=== PATIENT | female | born 1970 | race African-American/Black ===

== ENCOUNTER → 2023-09-10 19:21 | Outpatient (REF) | payer OTHER, SELFPAY | LOC: WDC 19:21 | PROVIDERS: ATTENDING PHYSICIAN Obstetrics & Gynecology; FAMILY PHYSICIAN Nurse Practitioner Adult Health | DX: Z12.31 Encounter for screening mammogram for malignant neoplasm of breast (principal) | CPT/HCPCS: 77063; 77067 ==

== ENCOUNTER → 2023-09-12 08:24 | Outpatient (REF) | payer OTHER, SELFPAY | LOC: HWRAD 08:24 | PROVIDERS: ATTENDING PHYSICIAN Internal Medicine; FAMILY PHYSICIAN Nurse Practitioner Adult Health | DX: R10.84 Generalized abdominal pain (principal); D25.9 Leiomyoma of uterus, unspecified | CPT/HCPCS: 76700; 76830; 76856 ==

== ENCOUNTER 2023-11-02 19:34 | Emergency (ER) | payer OTHER, SELFPAY ==
[2023-11-02 19:36] VITALS: BP 159/119
[2023-11-02 20:09] LABS: % Basophils 0.7 % (0-2); % Eosinophils 4.2 % (0-6); % Immature Granulocytes 0.3 % (0-0.5); % Lymphocytes 55.6 % (20.5-51.1); % Neutrophils 32.2 % (42.2-75.2); Absolute Basophils 0.1 10^3/uL (0-0.2); Absolute Eosinophils 0.3 10^3/uL (0-0.7); Absolute Lymphocytes 3.7 10^3/uL (1.2-3.4); Absolute Monocytes 0.5 10^3/uL (0.1-0.6); Absolute Neutrophils 2.1 10^3/uL (1.4-6.5); Hematocrit 36.8 % (37.0-47.0); Hemoglobin 12.8 g/dL (12.0-16.0); Mean Corp Hgb Conc. 34.8 g/dL (33.0-37.0); Mean Corpuscular Volume 89.1 fL (81.0-99.0); Mean Platelet Volume 9.5 fL (7.4-10.4); Nucleated Red Blood Cells % 0 %; Platelet Count 246 10^3/uL (130-400); Red Blood Cell Count 4.13 10^6/uL (4.20-5.40); Red Cell Dist. Width 11.9 % (11.5-14.5); White Blood Cell Count 6.7 10^3/uL (4.8-10.8)
[2023-11-02 20:10] VITALS: BMI 26.4
--- NOTE | 2023-11-02 20:15 | ED.GENMED ---
History of Present Illness
<Maco John MD - Last Filed: 11/02/23 22:49>
General
Chief Complaint: Abdominal Symptoms
Source: patient
Exam Limitations: none
Time Seen by Provider: 11/02/23 20:01
Nursing documentation reviewed up to this point in time: agreed with
Travel History
Have you had any contact with someone who has COVID-19?: No
Do you have any symptoms of coronavirus? Fever > 100 degrees, chills, cough, shortness of breath, sore throat, loss of taste or smell, muscle aches, or headache?: No
History of Present Illness
History of Present Illness:
52-year-old female with a past medical history of asthma, GERD who presents to the emergency room for evaluation of abdominal pain. Patient reports that she has been doing intermittent fasting recently and she fasts from 7 PM to 10 AM. Yesterday
morning she says that she broke her fast in the mid morning and shortly thereafter developed some chest pressure that she describes as feeling similar to prior episodes of indigestion. She says that typically she resolves this by drinking warm
beverages and occasionally taking a PPI; yesterday she drank a warm beverage and the feeling passed after a short period of time. She says that she did not have much of an appetite the rest of the day and so she did not eat for the rest of the day
yesterday. This morning she says that she once again tried eating and again got this feeling that she describes as indigestion in the center of her chest. She says that once again she drank warm beverages this time she says she did take some
omeprazole prior to eating and eventually the feeling once again passed. She felt well enough to go to the gym and worked out for about 2 hours. When she came home she says that she ate a stuffed green pepper and shortly thereafter she developed
very intense pain in the right upper quadrant and that pain has been consistent since onset. She describes a pressure sensation right upper quadrant that does not radiate. Associated with nausea but no vomiting. She has had some loose stools
recently. No blood in her stools. She denies any fever. She has been dealing with some nasal congestion/sinus infection recently. She denies any other complaints. She has been seen by GI in the past Dr. Wall. No prior history of abdominal
surgeries. Review of medical record shows that she did have an ultrasound in September which showed no gallstones.
Past History
<Maco John MD - Last Filed: 11/02/23 22:49>
Past History
ED Past Medical History: Other (Gastritis); Negative HTN, NIDDM or Seizures
ED Past Surgical History: Gynecological ()
Social History
Tobacco: Non-smoker
Alcohol: None
Drug: None
Personal:
Living: with family
Employment: Employed (Accounting)
Family History
Family History: Other (Noncontributory)
Review of Systems
<Maco John MD - Last Filed: 11/02/23 22:49>
Review of Systems
All Other Systems: ROS reviewed and negative except as documented in HPI and ROS
Constitutional: Denies fever or chills
EENT: Reports other (Nasal congestion); Denies sore throat or runny nose
Respiratory: Denies cough or trouble breathing
Cardiac: Reports chest pain; Denies palpitations
ABD/GI: Reports abdominal pain, nausea and diarrhea; Denies vomiting, constipated or bloody stools
: Denies flank pain
Musculoskeletal: Denies neck pain or back pain
Neurological: Denies headache, weakness or numbness
Phy Exam
<Maco John MD - Last Filed: 11/02/23 22:49>
Physical Exam
Physical Exam:
General: Awake, alert, appears mildly uncomfortable
Head: Normocephalic, atraumatic
Eyes: Conjunctiva normal, sclera anicteric
Throat: Airway intact, handling secretions
Neck: Trachea midline, supple without meningismus
Lungs: Clear to auscultation bilaterally, no wheezing, rales, rhonchi
Heart: Regular rate and rhythm, no murmurs, gallops, or rubs
Abd: Soft, non distended, tender to palpation right upper quadrant with no palpable masses
Neuro: No gross deficits
Skin: no rash
Extremities: No edema in extremities, warm and well-perfused
Scores
<Maco John MD - Last Filed: 11/02/23 22:49>
Heart Failure Risk
Heart Failure Risk Score: Not Applicable
Heart Score for Chest Pain Patients
STEMI patient?: Not applicable
Withdrawal Assessment of Alcohol
Withdrawal Assessment Completed?: Not applicable
Course
<Maco John MD - Last Filed: 11/02/23 22:49>
Orders/Labs/Results
Orders:
Orders
11/02/23 19:40
ECG [Electrocardiogram (*1)] Urgent
Reason for Study: Chest Pain
EKG- Treatment ONCE
11/02/23 20:03
CMP [Comprehensive Metabolic Panel] Urgent
Complete Blood Count/With Diff Urgent
Lipase Urgent
Comment: ADD ON
11/02/23 20:14
Ketorolac [Toradol] 15 mg IV NOW STA
US Abdomen Complete/Upper Urgent
Comment:
Reason For Exam: RUQ pain
11/02/23 20:15
Troponin I Urgent
11/02/23 20:16
Add On- LAB Urgent
Tests Added?: lipase
11/02/23 20:18
STOOL [C difficile Antigen & Toxins] Urgent
JADA Source: Feces/Stool
Specimen Description:
Stool Culture Urgent
JADA Source: Feces/Stool
Specimen Description:
11/02/23 20:27
Iohexol [Omnipaque] See Protocol PO NOW STA
11/02/23 20:35
Urinalysis Reflex To Culture Urgent
Date Specimen was Collected: 11/02/23
Time Specimen was Collected: 20:16
11/02/23 21:33
D-Dimer Urgent
11/02/23 22:24
CT Abd/pelvis W Iv Cont Urgent
Comment:
Reason For Exam: right sided abdominal pain
Abnormal Lab Results
11/02/23
20:03
RBC 4.13 L 10^6/uL
(4.20-5.40)
Hct 36.8 L %
(37.0-47.0)
Absolute Lymphs (auto) 3.7 H 10^3/uL
(1.2-3.4)
Neutrophils % 32.2 L %
(42.2-75.2)
Lymphocytes % 55.6 H %
(20.5-51.1)
11/02/23 20:03
11/02/23 20:03
Vital Signs
Initial and Last Documented VS:
Initial Vital Signs
Temp Pulse Resp BP Pulse Ox
98.3 F 96 20 159/119 99
11/02/23 19:36 11/02/23 19:36 11/02/23 19:36 11/02/23 19:36 11/02/23 19:36
Last Documented Vital Signs
Temp Pulse Resp BP Pulse Ox
98.3 F 96 20 159/119 99
11/02/23 19:36 11/02/23 19:36 11/02/23 19:36 11/02/23 19:36 11/02/23 19:36
Baljitlt;Mina Covington, DO - Last Filed: 11/02/23 23:55>
Orders/Labs/Results
Orders:
Orders
11/02/23 19:40
ECG [Electrocardiogram (*1)] Urgent
Reason for Study: Chest Pain
EKG- Treatment ONCE
11/02/23 20:03
CMP [Comprehensive Metabolic Panel] Urgent
Complete Blood Count/With Diff Urgent
Lipase Urgent
Comment: ADD ON
11/02/23 20:14
Ketorolac [Toradol] 15 mg IV NOW STA
US Abdomen Complete/Upper Urgent
Comment:
Reason For Exam: RUQ pain
11/02/23 20:15
Troponin I Urgent
11/02/23 20:16
Add On- LAB Urgent
Tests Added?: lipase
11/02/23 20:18
STOOL [C difficile Antigen & Toxins] Urgent
JADA Source: Feces/Stool
Specimen Description:
Stool Culture Urgent
JADA Source: Feces/Stool
Specimen Description:
11/02/23 20:27
Iohexol [Omnipaque] See Protocol PO NOW STA
11/02/23 20:35
Urinalysis Reflex To Culture Urgent
Date Specimen was Collected: 11/02/23
Time Specimen was Collected: 20:16
11/02/23 21:33
D-Dimer Urgent
11/02/23 22:24
CT Abd/pelvis W Iv Cont Urgent
Comment:
Reason For Exam: right sided abdominal pain
Abnormal Lab Results
11/02/23
20:03
RBC 4.13 L 10^6/uL
(4.20-5.40)
Hct 36.8 L %
(37.0-47.0)
Absolute Lymphs (auto) 3.7 H 10^3/uL
(1.2-3.4)
Neutrophils % 32.2 L %
(42.2-75.2)
Lymphocytes % 55.6 H %
(20.5-51.1)
11/02/23 20:03
11/02/23 20:03
Vital Signs
Initial and Last Documented VS:
Initial Vital Signs
Temp Pulse Resp BP Pulse Ox
98.3 F 96 20 159/119 99
11/02/23 19:36 11/02/23 19:36 11/02/23 19:36 11/02/23 19:36 11/02/23 19:36
Last Documented Vital Signs
Temp Pulse Resp BP Pulse Ox
98.3 F 96 20 159/119 99
11/02/23 19:36 11/02/23 19:36 11/02/23 19:36 11/02/23 19:36 11/02/23 19:36
<Maco John MD - Last Filed: 11/02/23 22:49>
MDM/Problems Addressed
Differential Diagnosis Includes:
Gastritis/GERD, cholecystitis, cholelithiasis, choledocholithiasis, enteritis, nephrolithiasis, pyelonephritis, much less likely appendicitis
MDM/Problems Addressed:
52-year-old female presents for evaluation of abdominal pain�she had some vague chest discomfort after eating twice over the past 24 hours and then this evening started with consistent right upper quadrant pain after eating. She is hypertensive but
has otherwise normal vitals. Physical exam as above. Plan to place an IV check labs including CBC and a CMP, lipase. Will check an EKG and a troponin in abundance of caution given the chest pain but lower suspicion for cardiac etiology for her
symptoms. Will check D-dimer although low suspicion for PE as well. Will check urinalysis. Will start with a right upper quadrant ultrasound to evaluate for cholelithiasis/cholecystitis. Will treat patient's pain, monitor closely, reassess after
the above.
Initial labs reviewed: CBC unremarkable, CMP shows no clinically significant abnormalities�LFTs notably normal. Lipase normal. Troponin undetectable. Dimer negative. Urinalysis shows no signs of infection. Awaiting results of ultrasound.
Ultrasound no signs of acute cholecystitis or cholelithiasis. LFTs and lipase normal. Will send for CT of the abdomen pelvis. Fortunately on clinical reassessment patient says her pain is resolved. If CT negative will likely plan for discharge
and treat for GERD/gastritis.
Acute Exacerbation and/or Progression of Chronic Illness:
Acutely hypertensive likely related to pain�we will treat pain but no indication for emergent antihypertensive treatment at present
Acute Exacerbation and/or Progression of Chronic Illness: HTN
<Maco John MD - Last Filed: 11/02/23 22:49>
*Radiology
Radiology exam reviewed: radiology read reviewed
*Pulse Oximetry
Patient hypoxic: no
*EKG
Interpreted by ED Provider?: Yes
Heart Rate: 79
Rate: normal
Rhythm: sinus
Dumas: normal axis
Interval: normal interval
QRS Pattern: normal QRS
Ischemia: no ischemia
*Critical Care Note
Total Time (30-74mins, 75-104mins- exclusive of procedures): Not Applicable
Data Reviewed
Review of Other/Old Records Reveals: Labs, Records and Radiology Studies
Source: patient and family
<Mina Covington DO - Last Filed: 11/02/23 23:55>
Update Note
Update Note:
Care of patient was transitioned pending CT. CT shows evidence of gastritis. On my evaluation, she is well-appearing nontoxic and feels comfortable going home. Will start Pepcid
ED Attending Note
<Maco John MD - Last Filed: 11/02/23 22:49>
-
Portions of this chart may have been created with voice recognition software.� Occasional wrong word or��sound alike� substitutions may have occurred due to the inherent limitations of voice recognition software.
Discharge Plan
Departure
Patient Disposition: Home (Routine Discharge)
Date of Disposition: 11/02/23
Time of Disposition: 23:52
Patient with high blood pressure during this ER visit?: Yes
Discharge Problem:
Gastritis
Instructions: Gastritis ED, BLOOD PRESSURE
Prescriptions:
New
famotidine [Pepcid] 40 mg tablet
40 mg PO DAILY Qty: 30 0RF
ondansetron 4 mg Tablet,Disintegrating
4 mg PO BIDPRN PRN (Reason: nausea/vomiting) Qty: 10 0RF
No Action
omeprazole 40 mg Capsule,Delayed Release(Dr/Ec)
40 mg PO PRN PRN (Reason: indigestion)
Referrals:
UNKNOWN - PT NOT,INTERVIEWE [Unknown Provider] -
Activity Restrictions/Additional Instructions:
Please return for any worsening symptoms.
You may return at any time if you have further concerns.
Please follow up with your doctor at the first available appointment, preferably this week.
Thank you for choosing [facility].
Interventions
Interventions:
*Risk Screen - Suicide Last Done: 11/02/23 19:36
*General Assessment Last Done: 11/02/23 19:36
*Neglect/Abuse Screening Last Done: 11/02/23 20:10
ED- Fall Risk Assessment Last Done: 11/02/23 20:10
*ED COVID-19 Vaccine History Last Done: 11/02/23 20:10
HO-Ltkcpk-Dfyanzpgqj Assessment Last Done: 11/02/23 20:10
[2023-11-02] MEDS: TORADOL 15 MG IV (20:17)
[2023-11-02 20:23] LABS: ALT (SGPT) 33 U/L (0-35); AST (SGOT) 36 U/L (14-36); Albumin 4.4 g/dl (3.5-5.0); Alkaline Phosphatase 89 U/L (38-126); Blood Urea Nitrogen 12 mg/dl (7-17); Calcium 9.8 mg/dl (8.4-10.2); Carbon Dioxide 23 mmol/L (22-30); Chloride 102 mmol/L (98-107); Estimated Creatinine Clearance 76 ml/min; Glucose 89 mg/dl (70-99); Potassium 3.7 mmol/L (3.5-5.1); Sodium 136 mmol/L (135-145); Total Bilirubin 0.8 mg/dl (0.2-1.3); Total Protein 7.7 g/dl (6.3-8.2); eGFR > 60.00
[2023-11-02] MEDS: OMNIPAQUE 50 ML PO (20:32)
[2023-11-02 20:41] LABS: Lipase 141 U/L (23-300)
[2023-11-02 20:43] LABS: Troponin I < 0.012 ng/ml
[2023-11-02 20:51] LABS: Urine Albumin Negative (Neg - Trace); Urine Bilirubin Negative (Negative); Urine Character Clear (Clear); Urine Color Yellow; Urine Glucose Negative (Negative); Urine Ketone Negative (Negative); Urine Leukocyte Negative (Negative); Urine Nitrite Negative (Negative); Urine Occult Blood Negative (Negative); Urine Specific Gravity 1.005 (<1.030); Urine Urobilinogen Negative (Neg - 1+)
[2023-11-02 22:04] LABS: D-Dimer < 0.27 ug/mlFEU (0.00-0.50)
[2023-11-03 00:07] VITALS: BP 158/79
== END 2023-11-03 00:18 | disposition home or self-care (01) ==
LOC: EMR 19:34
PROVIDERS: EMERGENCY PHYSICIAN Emergency Medicine; FAMILY PHYSICIAN Nurse Practitioner Adult Health
DX: K29.70 Gastritis, unspecified, without bleeding (principal); K21.9 Gastro-esophageal reflux disease without esophagitis; J45.909 Unspecified asthma, uncomplicated; Z87.19 Personal history of other diseases of the digestive system
CPT/HCPCS: 99284; 96374; 74177; 76700; 80053; 81003; 83690; 84484; 85025; 85379; 93005; Q9967

== ENCOUNTER 2023-12-18 09:04 | Emergency (ER) | payer OTHER, SELFPAY ==
[2023-12-18 09:06] VITALS: BP 160/95
--- NOTE | 2023-12-18 09:51 | ED.GENMED ---
History of Present Illness
General
Chief Complaint: Bowel Problem
Source: patient
Exam Limitations: none
Time Seen by Provider: 12/18/23 09:22
Travel History
Have you had any contact with someone who has COVID-19?: No
Do you have any symptoms of coronavirus? Fever > 100 degrees, chills, cough, shortness of breath, sore throat, loss of taste or smell, muscle aches, or headache?: No
History of Present Illness
History of Present Illness:
53 year old female presents with rectal pain and constipation. She has not had a bowel movement in several days. She was here a month ago for abdominal pain found to have gastritis and duodenitis. She is due to see GI in March. She tried an
enema at home today without any relief. She is nauseous but no vomiting. No fevers. She notes diffuse lower abdominal pain. No other complaints at this time
Past History
Past History
ED Past Medical History: Other (Gastritis); Negative HTN, NIDDM or Seizures
ED Past Surgical History: Gynecological ()
Social History
Tobacco: Non-smoker
Alcohol: None
Drug: None
Personal:
Living: with family
Employment: Employed (Accounting)
Family History
Family History: Other (Noncontributory)
Phy Exam
Physical Exam
Physical Exam:
General: Well-appearing female no acute respiratory
HEENT: Normocephalic atraumatic
Abdomen: Soft tender to the lower abdomen. No guarding or rebound normal bowel sounds
Rectal exam: This was performed female procurement agent in the room. There is no stool in the rectal vault. There is no hemorrhoids. Patient was tender to digital exam
Extremities: No cyanosis
Course
Orders/Labs/Results
Orders:
Orders
12/18/23 09:50
CR Abdomen - 2 Views Urgent
Comment:
Reason For Exam: constipation
12/18/23 10:28
Enema- Treatment ONCE
Type: Milk of Molasses
12/18/23 11:28
0.9% Sodium Chloride 1000 ml [Nss] 1,000 ml IV BOLUS
Iohexol [Omnipaque] See Protocol PO NOW STA
Ondansetron Injectable [Zofran] 4 mg IV NOW STA
12/18/23 11:29
CT Abd/pel W Iv And Oral Contr Urgent
Comment:
Reason For Exam: lower abdominal pain
12/18/23 11:37
Ketorolac [Toradol] 15 mg .ROUTE .STK-MED ONE
12/18/23 11:38
Ketorolac [Toradol] 15 mg IV NOW STA
12/18/23 11:39
Complete Blood Count/With Diff Urgent
Comprehensive Metabolic Panel Urgent
Lipase Urgent
12/18/23 15:12
Magnesium Citrate [Citroma] 300 ml PO ONCE ONE
Abnormal Lab Results
12/18/23
11:39
Abs Immat Gran (auto) 0.1 H 10^3/uL
(0-0.05)
Absolute Neuts (auto) 8.0 H 10^3/uL
(1.4-6.5)
Neutrophils % 77.0 H %
(42.2-75.2)
Lymphocytes % 16.8 L %
(20.5-51.1)
12/18/23 11:39
12/18/23 11:39
Vital Signs
Initial and Last Documented VS:
Initial Vital Signs
Temp Pulse Resp BP Pulse Ox
98.1 F 90 18 160/95 100
12/18/23 09:06 12/18/23 09:06 12/18/23 09:06 12/18/23 09:06 12/18/23 09:06
Last Documented Vital Signs
Temp Pulse Resp BP Pulse Ox
98.8 F 84 18 133/84 98
12/18/23 14:35 12/18/23 14:35 12/18/23 14:35 12/18/23 14:35 12/18/23 14:35
MDM/Problems Addressed
Differential Diagnosis Includes:
Lower abdominal pain with constipation. Question possible constipation versus obstruction versus proctitis.
Reviewed prior imaging studies which demonstrated CT scan that was performed last month with oral and IV contrast which showed duodenitis and gastritis. Patient has an appointment with GI in March however symptoms are worsening.
Will order plain x-ray acute attempted to quantify stool load or signs of obstruction given recent CT scan.
*Critical Care Note
Total Time (30-74mins, 75-104mins- exclusive of procedures): Not Applicable
Update Note
Update Note:
Plain films of abdomen do demonstrate significant mount of stool. Attempted milk of molasses enema. Patient held enema for several minutes however there was no bowel movement and pain is increasing. At this point we will start IV check labs
including lipase. CT of abdomen with oral and IV contrast ordered. Fluids and Zofran ordered and Toradol as well
Patient reexamined. Appears more comfortable. CT shows a large amount of stool in the colon without obstruction or acute process otherwise. Patient had a little bit of relief with enema. Will discharge home with magnesium citrate and
instructions to use MiraLAX as well
ED Attending Note
-
Portions of this chart may have been created with voice recognition software.� Occasional wrong word or��sound alike� substitutions may have occurred due to the inherent limitations of voice recognition software.
Discharge Plan
Departure
Patient Disposition: Home (Routine Discharge)
Date of Disposition: 12/18/23
Time of Disposition: 15:13
Patient with high blood pressure during this ER visit?: No
Discharge Problem:
Constipation
Instructions: Constipation, Adult (DC)
Prescriptions:
No Action
omeprazole 40 mg Capsule,Delayed Release(Dr/Ec)
40 mg PO PRN PRN (Reason: indigestion)
famotidine [Pepcid] 40 mg tablet
40 mg PO DAILY Qty: 30 0RF
ondansetron 4 mg Tablet,Disintegrating
4 mg PO BIDPRN PRN (Reason: nausea/vomiting) Qty: 10 0RF
Referrals:
Maribel Maguire, [Active] -
Arturo Medina CRNP [Family Provider] -
Activity Restrictions/Additional Instructions:
Use magnesium citrate as directed. Continue with MiraLAX after. Return if worse otherwise follow-up with GI
Interventions
Interventions:
*Risk Screen - Suicide Last Done: 12/18/23 09:06
*General Assessment Last Done: 12/18/23 12:05
*Neglect/Abuse Screening Last Done: 12/18/23 09:06
ED- Fall Risk Assessment Last Done: 12/18/23 12:05
*ED COVID-19 Vaccine History Last Done: 12/18/23 09:06
NK-Brziew-Goxygrjnok Assessment Last Done: 12/18/23 11:20
Discharge Date and Time
Print Language: ESTONIAN
[2023-12-18 11:35] VITALS: BMI 19.1
[2023-12-18] MEDS: NSS 1000 IV (11:40)
[2023-12-18] MEDS: ZOFRAN 4 MG IV (11:40)
[2023-12-18] MEDS: TORADOL 15 MG IV (11:40)
[2023-12-18] MEDS: OMNIPAQUE 50 ML PO (11:40)
[2023-12-18 12:01] LABS: % Basophils 0.4 % (0-2); % Eosinophils 0.4 % (0-6); % Immature Granulocytes 0.5 % (0-0.5); % Lymphocytes 16.8 % (20.5-51.1); % Monocytes 4.9 % (1.7-9.3); Absolute Immature Granulocytes 0.1 10^3/uL (0-0.05); Absolute Lymphocytes 1.7 10^3/uL (1.2-3.4); Absolute Monocytes 0.5 10^3/uL (0.1-0.6); Hematocrit 37.6 % (37.0-47.0); Hemoglobin 13.2 g/dL (12.0-16.0); Mean Corp Hgb Conc. 35.1 g/dL (33.0-37.0); Mean Corpuscular Volume 88.3 fL (81.0-99.0); Mean Platelet Volume 9.5 fL (7.4-10.4); Nucleated Red Blood Cells % 0 %; Platelet Count 283 10^3/uL (130-400); Red Blood Cell Count 4.26 10^6/uL (4.20-5.40); Red Cell Dist. Width 12.2 % (11.5-14.5); White Blood Cell Count 10.4 10^3/uL (4.8-10.8)
[2023-12-18 12:03] LABS: ALT (SGPT) 28 U/L (0-35); AST (SGOT) 31 U/L (14-36); Albumin 4.6 g/dl (3.5-5.0); Alkaline Phosphatase 108 U/L (38-126); Blood Urea Nitrogen 10 mg/dl (7-17); Calcium 9.7 mg/dl (8.4-10.2); Carbon Dioxide 24 mmol/L (22-30); Chloride 104 mmol/L (98-107); Estimated Creatinine Clearance 69 ml/min; Glucose 98 mg/dl (70-99); Lipase 92 U/L (23-300); Potassium 3.5 mmol/L (3.5-5.1); Sodium 137 mmol/L (135-145); Total Bilirubin 1.1 mg/dl (0.2-1.3); eGFR > 60.00
[2023-12-18 14:35] VITALS: BP 133/84
[2023-12-18] MEDS: CITROMA 300 ML PO (15:20)
== END 2023-12-18 15:45 | disposition home or self-care (01) ==
LOC: EMR 09:04
PROVIDERS: Physician Assistant; EMERGENCY PHYSICIAN Emergency Medicine; FAMILY PHYSICIAN Registered Nurse
DX: K59.00 Constipation, unspecified (principal)
CPT/HCPCS: 99285; 96374; 96375; 96361; 74019; 74177; 80053; 83690; 85025; Q9967

== ENCOUNTER 2024-01-19 12:37 | Emergency (ER) | payer OTHER, SELFPAY ==
[2024-01-19 12:44] VITALS: BP 135/87
[2024-01-19 13:13] LABS: % Basophils 1.9 % (0-2); % Eosinophils 11.1 % (0-6); % Immature Granulocytes 0.2 % (0-0.5); % Lymphocytes 38.5 % (20.5-51.1); % Monocytes 8.8 % (1.7-9.3); % Neutrophils 39.5 % (42.2-75.2); Absolute Basophils 0.1 10^3/uL (0-0.2); Absolute Eosinophils 0.5 10^3/uL (0-0.7); Absolute Lymphocytes 1.8 10^3/uL (1.2-3.4); Absolute Monocytes 0.4 10^3/uL (0.1-0.6); Absolute Neutrophils 1.9 10^3/uL (1.4-6.5); Hematocrit 39.1 % (37.0-47.0); Hemoglobin 13.3 g/dL (12.0-16.0); Mean Corpuscular Hgb 30.6 pg (27.0-31.0); Mean Corpuscular Volume 89.9 fL (81.0-99.0); Mean Platelet Volume 9.5 fL (7.4-10.4); Nucleated Red Blood Cells % 0 %; Platelet Count 214 10^3/uL (130-400); Red Blood Cell Count 4.35 10^6/uL (4.20-5.40); White Blood Cell Count 4.8 10^3/uL (4.8-10.8)
[2024-01-19 13:24] LABS: ALT (SGPT) 19 U/L (0-35); AST (SGOT) 27 U/L (14-36); Albumin 4.3 g/dl (3.5-5.0); Alkaline Phosphatase 85 U/L (38-126); Blood Urea Nitrogen 13 mg/dl (7-17); Calcium 9.6 mg/dl (8.4-10.2); Carbon Dioxide 29 mmol/L (22-30); Chloride 106 mmol/L (98-107); Glucose 78 mg/dl (70-99); Potassium 4.2 mmol/L (3.5-5.1); Sodium 140 mmol/L (135-145); Total Bilirubin 0.8 mg/dl (0.2-1.3); Total Protein 7.5 g/dl (6.3-8.2); eGFR > 60.00
[2024-01-19 13:36] LABS: Troponin I < 0.012 ng/ml
--- NOTE | 2024-01-19 14:00 | ED.GENMED ---
History of Present Illness
General
Chief Complaint: Chest Pain
Source: patient
Exam Limitations: none
Time Seen by Provider: 01/19/24 13:29
Nursing documentation reviewed up to this point in time: agreed with
Travel History
Have you had any contact with someone who has COVID-19?: No
Do you have any symptoms of coronavirus? Fever > 100 degrees, chills, cough, shortness of breath, sore throat, loss of taste or smell, muscle aches, or headache?: No
History of Present Illness
History of Present Illness:
53-year-old female prior history of asthma resolved after pregnancies, presents with wheezing burning in her chest, saw her PCP told her it was reflux started on a PPI some relief of her symptoms, though she is waking up with some wheezing,
nondrinker non-smoker no fevers no nausea or vomiting, using albuterol with not much relief
Past History
Past History
ED Past Medical History: Asthma and Other (Gastritis); Negative HTN, NIDDM or Seizures
ED Past Surgical History: Gynecological ()
Social History
Tobacco: Non-smoker
Alcohol: None
Drug: None
Personal:
Living: with family
Employment: Employed (Accounting)
Family History
Family History: Other (Noncontributory); Negative CAD
Review of Systems
Review of Systems
All Other Systems: ROS reviewed and negative except as documented in HPI and ROS
Constitutional: Denies fever or fatigue
Respiratory: Reports trouble breathing
Cardiac: Reports chest pain
ABD/GI: Reports no symptoms
: Reports no symptoms
Musculoskeletal: Reports no symptoms
Skin: Reports no symptoms
Neurological: Reports no symptoms
Endocrine: Reports no symptoms
Hematologic/Lymphatic: Reports no symptoms
Phy Exam
Physical Exam
Physical Exam:
Physical Exam
General: no apparent distress, not acutely ill
Neck: No jaundice
Heart: s1/s2 regular rate and rhythm, no murmur. equal radial pulses.
Lungs: Faint wheezing
Abdomen:
Neuro: alert and oriented. no focal neurological deficits
Skin: no rash
Psychiatric: well kept. interactive and cooperative
Extremities: no edema. no calf tenderness.
Scores
Heart Score for Chest Pain Patients
STEMI patient?: No
History: Slightly or Non-Suspicious
ECG: Normal
Age: >45 - <65 years
Risk Factors: 1 or 2 Risk Factors
Troponin: </= Normal Limit
Heart Score for Chest Pain Patients: 2
Heart Score Risk: 2.5% MACE over next 6 weeks
Course
Orders/Labs/Results
Orders:
Orders
01/19/24 12:49
Electrocardiogram (*1) Urgent
Reason for Study: Chest Pain
EKG- Treatment ONCE
01/19/24 12:58
CMP [Comprehensive Metabolic Panel] Urgent
Complete Blood Count/With Diff Urgent
Troponin I Urgent
01/19/24 13:56
Dexamethasone Sod Phosphate [Decadron] 10 mg IV NOW STA
Ipratropium/Albuterol Sulfate [Duoneb] 3 ml INH R NOW STA
01/19/24 13:57
CR Chest - 2 Views Urgent
Comment:
Reason For Exam: sob
01/19/24 15:27
D-Dimer Urgent
01/19/24 16:19
Mag Hydrox/Al Hydrox/Simeth [Maalox] 30 ml Phenobarb/Hyoscy/Atropine/Scop [] 10 ml Viscous Lidocaine 2% [Xylocaine Viscous Cup] 10 ml PO NOW
Abnormal Lab Results
01/19/24
12:58
Neutrophils % 39.5 L %
(42.2-75.2)
Eosinophils % 11.1 H %
(0-6)
01/19/24 12:58
01/19/24 12:58
Vital Signs
Initial and Last Documented VS:
Initial Vital Signs
Temp Pulse Resp BP Pulse Ox
98.2 F 86 16 135/87 100
01/19/24 12:44 01/19/24 12:44 01/19/24 12:44 01/19/24 12:44 01/19/24 12:44
Last Documented Vital Signs
Temp Pulse Resp BP Pulse Ox
98.2 F 82 18 120/87 99
01/19/24 12:44 01/19/24 16:00 01/19/24 16:00 01/19/24 16:00 01/19/24 16:00
MDM/Problems Addressed
Differential Diagnosis Includes:
URI asthmatic bronchitis reflux doubt ACS unlikely pneumothorax PE
MDM/Problems Addressed:
Wheezing dyspepsia
Chronic conditions affecting care:
Asthma
Acute Exacerbation and/or Progression of Chronic Illness:
Asthma
*Critical Care Note
Total Time (30-74mins, 75-104mins- exclusive of procedures): Not Applicable
Update Note
Update Note:
Patient well-appearing, will treat with nebs steroids will check SSA D-dimer chest x-ray
3:38 PM chest x-ray report noted D-dimer is pending
4:00 D-dimer noted
Patient updated, still some tightness in her chest near points over her sternum, states she is no longer wheezing her chest is clear will try Maalox abdominal
ED Attending Note
-
Portions of this chart may have been created with voice recognition software.� Occasional wrong word or��sound alike� substitutions may have occurred due to the inherent limitations of voice recognition software.
Discharge Plan
Departure
Patient Disposition: Home (Routine Discharge)
Date of Disposition: 01/19/24
Time of Disposition: 16:46
Patient with high blood pressure during this ER visit?: No
Condition: Good
Covid-19: Not Applicable
Discharge Problem:
Chest pain
Instructions: Acid Reflux and GERD in Adults (DC), Chest Pain PCP Follow Up
Prescriptions:
New
alum-mag hydroxide-simeth [Maalox Advanced] 200-200-20 mg/5 mL suspension
10 ml PO QID PRN (Reason: indigestion) Qty: 1500 0RF
albuterol sulfate 90 mcg/actuation HFA aerosol inhaler
2 puff inhalation Q6H PRN (Reason: shortness of breath or wheezing) Qty: 8.5 0RF
methylprednisolone [Medrol (Dima)] 4 mg tablets,dose pack
See Rx Instructions .ROUTE .COMPLEX Qty: 21 0RF
Rx Instructions:
for 6 days
No Action
omeprazole 40 mg Capsule,Delayed Release(Dr/Ec)
40 mg PO DAILY
famotidine [Pepcid] 40 mg tablet
40 mg PO DAILY Qty: 30 0RF
cyanocobalamin (vitamin B-12) 1,000 mcg Tablet
1,000 mcg PO DAILY
Theragen Tablet
1 tab PO DAILY
alum-mag hydroxide-simeth [Mylanta] 200-200-20 mg/5 mL Suspension
15 ml PO DAILYPRN PRN (Reason: gerd)
cholecalciferol (vitamin D3) [Vitamin D3] 25 mcg (1,000 unit) Tablet
25 mcg PO DAILY
biotin 5 mg Tablet
5 mg PO DAILY
magnesium glycinate 100 mg Tablet
100 mg PO HS
magnesium citrate 100 mg Capsule
100 mg PO DAILYPRN PRN (Reason: constiaption)
elderberry fruit 350 mg Capsule
350 mg PO DAILY
cetirizine [Zyrtec] 10 mg Tablet
10 mg PO DAILYPRN PRN (Reason: allergies)
Referrals:
Jamaica Jones CRNP [Family Provider] - Next open appointment
Interventions
Interventions:
*General Assessment Last Done: 01/19/24 12:44
*ED COVID-19 Vaccine History Last Done: 01/19/24 12:44
ED- Cardiac Assessment Last Done: 01/19/24 15:54
Discharge Date and Time
Print Language: MAURITIAN
[2024-01-19] MEDS: DUONEB 3 ML INH (15:24)
[2024-01-19] MEDS: DECADRON 10 MG IV (15:24)
[2024-01-19 15:34] VITALS: BP 132/83
[2024-01-19 15:53] LABS: D-Dimer < 0.27 ug/mlFEU (0.00-0.50)
[2024-01-19 16:00] VITALS: BP 120/87
[2024-01-19] MEDS: MAALOX 50 PO (16:53)
== END 2024-01-19 17:21 | disposition home or self-care (01) ==
LOC: EMR 12:37
PROVIDERS: Emergency Medicine; EMERGENCY PHYSICIAN Emergency Medicine; FAMILY PHYSICIAN Nurse Practitioner Adult Health
DX: R07.89 Other chest pain (principal); J45.909 Unspecified asthma, uncomplicated; K21.9 Gastro-esophageal reflux disease without esophagitis; Z87.19 Personal history of other diseases of the digestive system
CPT/HCPCS: 99283; 94640; 96374; 71046; 80053; 84484; 85025; 85379; 93005

== ENCOUNTER 2024-01-27 15:59 | Emergency (ER) | payer OTHER, SELFPAY ==
[2024-01-27 16:06] VITALS: BP 156/87
[2024-01-27] MEDS: MAALOX 40 PO (17:17)
--- NOTE | 2024-01-27 17:23 | ED.GENMED ---
History of Present Illness
General
Chief Complaint: Abdominal Pain
Source: patient
Exam Limitations: none
Time Seen by Provider: 01/27/24 17:04
Nursing documentation reviewed up to this point in time: agreed with
Travel History
Have you had any contact with someone who has COVID-19?: No
Do you have any symptoms of coronavirus? Fever > 100 degrees, chills, cough, shortness of breath, sore throat, loss of taste or smell, muscle aches, or headache?: No
History of Present Illness
History of Present Illness:
53-year-old female known to me from prior visit presents with burning in her chest
When I saw her few weeks ago she had negative troponins felt much better after GI cocktail she did follow-up with her PCP who told her she had yeast started on antifungal, scheduled to see GI tomorrow, states she does wheeze at times due to her
reflux, she wheezes child and teenager did not until the start of her reflux like symptoms, she also on a PPI,
Pain is nonradiating, no diaphoresis
Past History
Past History
ED Past Medical History: Asthma and Other (Gastritis); Negative HTN, NIDDM or Seizures
ED Past Surgical History: Gynecological ()
Social History
Tobacco: Non-smoker
Alcohol: None
Drug: None
Personal:
Living: with family
Employment: Employed (Accounting)
Family History
Family History: Other (Noncontributory); Negative CAD
Review of Systems
Review of Systems
All Other Systems: Not applicable
Constitutional: Denies fever or fatigue
EENT: Reports no symptoms
Respiratory: Denies trouble breathing
Cardiac: Reports chest pain
ABD/GI: Reports abdominal pain (Burning in her upper abdomen and the chest)
: Reports no symptoms
Musculoskeletal: Reports no symptoms
Skin: Reports no symptoms
Neurological: Reports no symptoms
Endocrine: Reports no symptoms
Phy Exam
Physical Exam
Physical Exam:
Physical Exam
General: no apparent distress, not acutely ill
Neck: No jaundice
Heart: s1/s2 regular rate and rhythm, no murmur. equal radial pulses.
Lungs: no acute respiratory distress. clear bilaterally
Abdomen: Soft, minimal epigastric tenderness
Neuro: alert and oriented. no focal neurological deficits
Skin: no rash
Psychiatric: well kept. interactive and cooperative
Extremities: no edema.
Scores
Heart Score for Chest Pain Patients
STEMI patient?: No
History: Slightly or Non-Suspicious
ECG: Nonspecific Repolarization
Age: >45 - <65 years
Risk Factors: No Risk Factors
Troponin: </= Normal Limit
Heart Score for Chest Pain Patients: 2
Heart Score Risk: 2.5% MACE over next 6 weeks
Course
Orders/Labs/Results
Orders:
Orders
01/27/24 16:01
ECG [Electrocardiogram (*1)] Urgent
Reason for Study: Chest Pain
EKG- Treatment ONCE
01/27/24 17:12
Mag Hydrox/Al Hydrox/Simeth [Maalox] 30 ml Phenobarb/Hyoscy/Atropine/Scop [] 10 ml Viscous Lidocaine 2% [Xylocaine Viscous Cup] 10 ml PO NOW
01/27/24 17:15
Mag Hydrox/Al Hydrox/Simeth [Maalox] 30 ml .ROUTE .STK-MED ONE
Phenobarb/Hyoscy/Atropine/Scop [] 10 ml .ROUTE .STK-MED ONE
Viscous Lidocaine 2% [Xylocaine Viscous Cup] 15 ml .ROUTE .STK-MED ONE
01/27/24 17:52
Troponin I Urgent
Vital Signs
Initial and Last Documented VS:
Initial Vital Signs
Temp Pulse Resp BP Pulse Ox
98.7 F 88 20 156/87 98
01/27/24 16:06 01/27/24 16:06 01/27/24 16:06 01/27/24 16:06 01/27/24 16:06
Last Documented Vital Signs
Temp Pulse Resp BP Pulse Ox
98.7 F 88 20 156/87 98
01/27/24 16:06 01/27/24 16:06 01/27/24 16:06 01/27/24 16:06 01/27/24 16:06
MDM/Problems Addressed
Differential Diagnosis Includes:
Gastritis, esophagitis, doubt pancreatitis no pain in the back, ACS less likely EKG noted no diaphoresis no radiation
MDM/Problems Addressed:
Chest burning
Chronic conditions affecting care:
GERD
Acute Exacerbation and/or Progression of Chronic Illness:
GERD
*Critical Care Note
Total Time (30-74mins, 75-104mins- exclusive of procedures): Not Applicable
Update Note
Update Note:
Update patient feeling better undetectable troponin
ED Attending Note
-
Portions of this chart may have been created with voice recognition software.� Occasional wrong word or��sound alike� substitutions may have occurred due to the inherent limitations of voice recognition software.
Discharge Plan
Departure
Patient Disposition: Home (Routine Discharge)
Date of Disposition: 01/27/24
Time of Disposition: 18:29
Patient with high blood pressure during this ER visit?: No
Condition: Good
Discharge Problem:
Indigestion
Instructions: Acid Reflux and GERD in Adults (DC), Gastritis (DC)
Prescriptions:
New
nuzfinllg-rwueqz-kpjpzryq-scop [] 16.2 mg-0.1037 mg/5 mL (5 mL) elixir
7.5 ml PO Q6H PRN (Reason: indigestion) Qty: 50 0RF
Rx Instructions:
Mix with 30 cc of Maalox
alum-mag hydroxide-simeth [Antacid Liquid] 200-200-20 mg/5 mL suspension
30 ml PO QID PRN (Reason: indigestion) Qty: 3000 0RF
No Action
omeprazole 40 mg Capsule,Delayed Release(Dr/Ec)
40 mg PO DAILY
famotidine [Pepcid] 40 mg tablet
40 mg PO DAILY Qty: 30 0RF
cyanocobalamin (vitamin B-12) 1,000 mcg Tablet
1,000 mcg PO DAILY
Theragen Tablet
1 tab PO DAILY
alum-mag hydroxide-simeth [Mylanta] 200-200-20 mg/5 mL Suspension
15 ml PO DAILYPRN PRN (Reason: gerd)
cholecalciferol (vitamin D3) [Vitamin D3] 25 mcg (1,000 unit) Tablet
25 mcg PO DAILY
biotin 5 mg Tablet
5 mg PO DAILY
magnesium glycinate 100 mg Tablet
100 mg PO HS
magnesium citrate 100 mg Capsule
100 mg PO DAILYPRN PRN (Reason: constiaption)
elderberry fruit 350 mg Capsule
350 mg PO DAILY
cetirizine [Zyrtec] 10 mg Tablet
10 mg PO DAILYPRN PRN (Reason: allergies)
alum-mag hydroxide-simeth [Maalox Advanced] 200-200-20 mg/5 mL suspension
10 ml PO QID PRN (Reason: indigestion) Qty: 1500 0RF
albuterol sulfate 90 mcg/actuation HFA aerosol inhaler
2 puff inhalation Q6H PRN (Reason: shortness of breath or wheezing) Qty: 8.5 0RF
methylprednisolone [Medrol (Dima)] 4 mg tablets,dose pack
See Rx Instructions .ROUTE .COMPLEX Qty: 21 0RF
Rx Instructions:
for 6 days
Referrals:
UNKNOWN - PT DOES,NOT KNOW [Family Provider] -
Interventions
Interventions:
*Risk Screen - Suicide Last Done: 01/27/24 17:08
*General Assessment Last Done: 01/27/24 17:08
*Neglect/Abuse Screening Last Done: 01/27/24 17:08
JT-Nlcfbv-Tjxqunejmn Assessment Last Done: 01/27/24 17:08
Discharge Date and Time
Print Language: JAPANESE
[2024-01-27 18:23] LABS: Troponin I < 0.012 ng/ml
== END 2024-01-27 19:03 | disposition home or self-care (01) ==
LOC: EMR 15:59
PROVIDERS: EMERGENCY PHYSICIAN Emergency Medicine
DX: K30 Functional dyspepsia (principal); K21.9 Gastro-esophageal reflux disease without esophagitis; J45.909 Unspecified asthma, uncomplicated
CPT/HCPCS: 99284; 84484; 93005

== ENCOUNTER 2024-02-05 06:16 | Day surgery (SDC) | payer OTHER, SELFPAY ==
[2024-02-05 07:39] VITALS: BMI 24.1
[2024-02-05 07:40] VITALS: BMI 24.1
[2024-02-05 08:00] VITALS: BP 153/85
[2024-02-05 08:45] VITALS: BP 129/76
[2024-02-05 09:00] VITALS: BP 134/84
[2024-02-05 09:15] VITALS: BP 149/87
== END 2024-02-05 09:25 | disposition home or self-care (01) ==
LOC: GI 06:16
PROVIDERS: ATTENDING PHYSICIAN Internal Medicine
DX: R12 Heartburn (principal); K44.9 Diaphragmatic hernia without obstruction or gangrene; K22.89 Other specified disease of esophagus; K21.9 Gastro-esophageal reflux disease without esophagitis
CPT/HCPCS: 43239; 88305

== ENCOUNTER → 2024-02-07 13:57 | Outpatient (REF) | payer OTHER, SELFPAY | LOC: WDC 13:57 | PROVIDERS: ATTENDING PHYSICIAN Obstetrics & Gynecology; FAMILY PHYSICIAN Nurse Practitioner Adult Health | DX: R92.2 Inconclusive mammogram (principal) | CPT/HCPCS: 76641 ==

== ENCOUNTER → 2024-04-28 09:47 | Outpatient (REF) | payer OTHER, SELFPAY | LOC: RAD 09:47 | PROVIDERS: ATTENDING PHYSICIAN Nurse Practitioner Adult Health | DX: M79.662 Pain in left lower leg (principal) | CPT/HCPCS: 93971 ==

== ENCOUNTER → 2024-09-11 13:48 | Outpatient (REF) | payer OTHER, SELFPAY | LOC: WDC 13:48 | PROVIDERS: ATTENDING PHYSICIAN Nurse Practitioner Adult Health | DX: Z12.31 Encounter for screening mammogram for malignant neoplasm of breast (principal) | CPT/HCPCS: 77063; 77067 ==

== ENCOUNTER → 2024-11-20 12:09 | Outpatient (REF) | payer OTHER, SELFPAY | LOC: HWRAD 12:09 | PROVIDERS: ATTENDING PHYSICIAN Nurse Practitioner Adult Health | DX: M54.2 Cervicalgia (principal) | CPT/HCPCS: 72040 ==

== ENCOUNTER → 2024-11-30 10:23 | Outpatient (REF) | payer OTHER, SELFPAY | LOC: HWRAD 10:23 | PROVIDERS: ATTENDING PHYSICIAN Student in an Organized Health Care Education/Training Program; FAMILY PHYSICIAN Nurse Practitioner Adult Health | DX: D25.9 Leiomyoma of uterus, unspecified (principal) | CPT/HCPCS: 76830; 76856 ==

== ENCOUNTER 2025-01-29 12:05 | Emergency (ER) | payer OTHER, SELFPAY ==
[2025-01-29 12:08] VITALS: BP 174/88
--- NOTE | 2025-01-29 13:14 | ED.GENMED ---
History of Present Illness
General
Chief Complaint: Blood Pressure Problem
Time Seen by Provider: 01/29/25 12:26
History of Present Illness
History of Present Illness:
54-year-old female with no significant past medical history presents to the emergency department for evaluation of elevated blood pressure readings for the past week. States she has had frequent headaches and occasional chest tightness that
prompted her to check her blood pressure. Typically she has well-controlled blood pressure, notes that she previously had transient elevated readings but did not tolerate antihypertensive therapy due to hypotension. She denies any dizziness or
lightheadedness currently. She is a non-smoker. Denies any family history of precocious coronary disease.
Past History
Past History
ED Past Medical History: Asthma and Other (Gastritis); Negative HTN, NIDDM or Seizures
ED Past Surgical History: Gynecological ()
Social History
Tobacco: Non-smoker
Alcohol: None
Drug: None
Personal:
Living: with family
Employment: Employed (Accounting)
Family History
Family History: Other (Noncontributory); Negative CAD
Review of Systems
Review of Systems
Allergies reviewed?: Yes
All Other Systems: ROS reviewed and negative except as documented in HPI and ROS
Phy Exam
Physical Exam
Physical Exam:
GEN: Well appearing, NAD, WDWN
HEENT: Oral mucosa moist, no scleral icterus
Cardiac: Regular rate and rhythm, no murmurs
Lung: No respiratory distress, no tachypnea, lungs clear to auscultation
MSK: No gross deformity or injuries
Skin: Good color, no pallor or jaundice, no rashes
Neuro: AO x3, moves all extremities freely
Psych: Calm, cooperative
Course
Orders/Labs/Results
Orders:
Orders
01/29/25 12:44
Electrocardiogram (*1) Urgent
Reason for Study: Chest Pain
EKG- Treatment ONCE
01/29/25 13:06
Basic Metabolic Panel Urgent
Complete Blood Count/No Diff Urgent
01/29/25 13:20
Troponin I Urgent
01/29/25 13:06
01/29/25 13:06
Vital Signs
Initial and Last Documented VS:
Initial Vital Signs
Temp Pulse Resp BP Pulse Ox
97.6 F 84 16 174/88 100
01/29/25 12:08 01/29/25 12:08 01/29/25 12:08 01/29/25 12:08 01/29/25 12:08
Last Documented Vital Signs
Temp Pulse Resp BP Pulse Ox
97.6 F 70 16 146/90 99
01/29/25 12:08 01/29/25 14:18 01/29/25 12:08 01/29/25 14:18 01/29/25 14:18
MDM/Problems Addressed
MDM/Problems Addressed:
Is an EKG reassuring, will start low-dose valsartan as she had been on this previously and recommend primary care follow-up
Comment
Comment:
EKG independently interpreted by me shows normal sinus rhythm at [address] changes concerning for ischemia
*Pulse Oximetry
SaO2: 99
Oxygen Mode of Delivery: Room air
*Critical Care Note
Total Time (30-74mins, 75-104mins- exclusive of procedures): Not Applicable
ED Attending Note
-
Portions of this chart may have been created with voice recognition software.� Occasional wrong word or��sound alike� substitutions may have occurred due to the inherent limitations of voice recognition software.
Discharge Plan
Departure
Patient Disposition: Home (Routine Discharge)
Date of Disposition: 01/29/25
Time of Disposition: 14:26
Patient with high blood pressure during this ER visit?: No
Discharge Problem:
High blood pressure
Instructions: High Blood Pressure (DC)
Prescriptions:
New
valsartan 40 mg tablet
40 mg PO DAILY Qty: 30 0RF
No Action
omeprazole 40 mg Capsule,Delayed Release(Dr/Ec)
40 mg PO BID
cyanocobalamin (vitamin B-12) 1,000 mcg Tablet
1,000 mcg PO DAILY
Theragen Tablet
1 tab PO DAILY
cholecalciferol (vitamin D3) [Vitamin D3] 25 mcg (1,000 unit) Tablet
25 mcg PO DAILY
biotin 5 mg Tablet
5 mg PO DAILY
magnesium glycinate 100 mg Tablet
400 mg PO HS PRN (Reason: sleep)
magnesium citrate 100 mg Capsule
100 mg PO DAILYPRN PRN (Reason: constiaption)
cetirizine [Zyrtec] 10 mg Tablet
10 mg PO DAILYPRN PRN (Reason: allergies)
albuterol sulfate 90 mcg/actuation HFA aerosol inhaler
2 puff inhalation Q6H PRN (Reason: shortness of breath or wheezing) Qty: 8.5 0RF
methylprednisolone [Medrol (Dima)] 4 mg tablets,dose pack
See Rx Instructions .ROUTE .COMPLEX Qty: 21 0RF
Rx Instructions:
for 6 days
famotidine [Pepcid] 40 mg tablet
20 mg PO DAILY
clotrimazole 10 mg Leah
10 mg MUCOUS MEMBRANE TID
Mylanta
10 ml PO TID
Referrals:
Jamaica Jones CRNP [Family Provider, Internal Medicine]
Interventions
Interventions:
*Risk Screen - Suicide Last Done: 01/29/25 12:08
*General Assessment Last Done: 01/29/25 13:11
*Neglect/Abuse Screening Last Done: 01/29/25 12:08
*ED- Fall Risk Assessment Last Done: 01/29/25 13:11
*ED COVID-19 Vaccine History Last Done: 01/29/25 13:11
ED- Cardiac Assessment Last Done: 01/29/25 14:21
ED- Neurological Assessment Last Done: 01/29/25 13:13
ED- Pulmonary Assessment Last Done: 01/29/25 13:13
Discharge Date and Time
Print Language: VENEZUELAN
[2025-01-29 13:23] LABS: Hematocrit 41.4 % (37.0-47.0); Hemoglobin 13.7 g/dL (12.0-16.0); Mean Corp Hgb Conc. 33.1 g/dL (33.0-37.0); Mean Corpuscular Hgb 29.8 pg (27.0-31.0); Mean Corpuscular Volume 90.2 fL (81.0-99.0); Mean Platelet Volume 9.6 fL (7.4-10.4); Platelet Count 262 10^3/uL (130-400); Red Blood Cell Count 4.59 10^6/uL (4.20-5.40); Red Cell Dist. Width 12.6 % (11.5-14.5); White Blood Cell Count 5.3 10^3/uL (4.8-10.8)
[2025-01-29 13:30] VITALS: BP 135/77
[2025-01-29 13:47] LABS: Blood Urea Nitrogen 12 mg/dl (7-17); Calcium 9.9 mg/dl (8.4-10.2); Carbon Dioxide 26 mmol/L (22-30); Chloride 107 mmol/L (98-107); Glucose 81 mg/dl (70-99); Potassium 4.3 mmol/L (3.5-5.1); Sodium 143 mmol/L (135-145); eGFR > 60.00
[2025-01-29 14:00] VITALS: BP 146/90
[2025-01-29 14:18] VITALS: BP 146/90
[2025-01-29 14:18] LABS: Troponin I < 0.012 ng/ml
[2025-01-29 14:30] VITALS: BP 147/87
[2025-01-29 14:46] VITALS: BP 147/87
== END 2025-01-29 14:51 | disposition home or self-care (01) ==
LOC: EMR 12:05
PROVIDERS: Physician Assistant; EMERGENCY PHYSICIAN Emergency Medicine; FAMILY PHYSICIAN Nurse Practitioner Adult Health
DX: I10 Essential (primary) hypertension (principal)
CPT/HCPCS: 99284; 80048; 84484; 85027; 93005

== ENCOUNTER → 2025-03-25 08:05 | Outpatient (REF) | payer OTHER, SELFPAY | LOC: WDC 08:05 | PROVIDERS: ATTENDING PHYSICIAN Student in an Organized Health Care Education/Training Program; FAMILY PHYSICIAN Nurse Practitioner Adult Health | DX: R92.2 Inconclusive mammogram (principal) | CPT/HCPCS: 76641 ==

== ENCOUNTER → 2025-03-31 08:55 | Outpatient (REF) | payer OTHER, SELFPAY ==
--- NOTE | 2025-03-31 15:18 | OID.BR.INTR ---
[facility] Breast Navigator - Initial
- -
Date of Contact: 03/31/25
Met with patient. Patient given written information on navigator services available at [facility]. Will follow up as needed per protocol.
== END ==
LOC: WDC 08:55
PROVIDERS: ATTENDING PHYSICIAN Student in an Organized Health Care Education/Training Program
DX: N63.20 Unspecified lump in the left breast, unspecified quadrant (principal); N63.22 Unspecified lump in the left breast, upper inner quadrant
CPT/HCPCS: 19083; 19084; 88305; 88341; 88342; 88360; A4648

== ENCOUNTER 2025-05-25 08:21 | Emergency (ER) | payer OTHER, SELFPAY ==
[2025-05-25 08:23] VITALS: BP 126/100
[2025-05-25] MEDS: TORADOL 30 MG IM (08:44)
--- NOTE | 2025-05-25 08:45 | ED.GENMED ---
History of Present Illness
General
Chief Complaint: Bowel Problem
Source: patient and spouse
Exam Limitations: none
Time Seen by Provider: 05/25/25 08:29
Nursing documentation reviewed up to this point in time: agreed with
History of Present Illness
History of Present Illness:
54-year-old female past medical history of breast cancer status post left-sided lumpectomy last week as well as lymph node removal, GERD and asthma presenting to the emergency department today with concerns of inability to have a bowel movement.
Unable to go over the past few days feels immense pressure near the rectum and anus feels very similar previous episodes where she had fecal impactions which she has had multiple times in the past. v she denies any nausea vomiting chest pain
shortness of breath fevers.
Past History
Past History
ED Past Medical History: Asthma and Other (Gastritis); Negative HTN, NIDDM or Seizures
ED Past Surgical History: Gynecological ()
Social History
Tobacco: Non-smoker
Alcohol: None
Drug: None
Personal:
Living: with family
Employment: Employed (Accounting)
Family History
Family History: Other (Noncontributory); Negative CAD
Review of Systems
Review of Systems
Allergies reviewed?: Yes
All Other Systems: ROS reviewed and negative except as documented in HPI and ROS
Phy Exam
Physical Exam
Physical Exam:
GENERAL: Alert , patient appears uncomfortable
EYE: pupils equal and reactive
NECK: Supple, no significant adenopathy.
ENT: o/p clr, mmm.
CARDIAC: Regular rate and rhythm .
LUNGS: Clear breath sounds bilaterally, no acute respiratory distress, no wheezes/rales/rhonchi
ABDOMEN: Soft, without focal tenderness, no r/g, no cvat
NEUROLOGICAL: Alert and oriented, no focal neuro deficits
SKIN: Warm and dry, skin intact.
MUSCULOSKELETAL: No edema, well perfused.
PSYCH: Normal and appropriate interaction.
Course
Orders/Labs/Results
Orders:
Orders
05/25/25 08:42
Ketorolac [Toradol] 30 mg .ROUTE .STK-MED ONE
05/25/25 08:43
Enema- Treatment ONCE
Type: Milk of Molasses
Ketorolac [Toradol] 30 mg IM NOW STA
05/25/25 10:26
Lidocaine 2% [Lidocaine Uro-Jet 2%] 1 syringe .ROUTE .STK-MED ONE
Vital Signs
Initial and Last Documented VS:
Initial Vital Signs
Temp Pulse Resp BP Pulse Ox
98.2 F 101 20 126/100 100
05/25/25 08:23 05/25/25 08:23 05/25/25 08:23 05/25/25 08:23 05/25/25 08:23
Last Documented Vital Signs
Temp Pulse Resp BP Pulse Ox
98.2 F 101 20 126/100 100
05/25/25 08:23 05/25/25 08:23 05/25/25 08:23 05/25/25 08:23 05/25/25 08:48
MDM/Problems Addressed
MDM/Problems Addressed:
54-year-old female presenting to the emergency department today with concerns of inability to have a bowel movement over the past few days with increasing pressure and discomfort to the rectal region. Patient concerned she has a fecal impaction
which she has had multiple times in the past that felt very similar. Patient was given milk of molasses enema with great relief. Stable for discharge. No ongoing symptoms. Return precautions given.
*Pulse Oximetry
SaO2: 100
Oxygen Mode of Delivery: Room air
Patient hypoxic: no (100)
*Critical Care Note
Total Time (30-74mins, 75-104mins- exclusive of procedures): Not Applicable
ED Attending Note
-
Portions of this chart may have been created with voice recognition software.� Occasional wrong word or��sound alike� substitutions may have occurred due to the inherent limitations of voice recognition software.
Discharge Plan
Departure
Patient Disposition: Home (Routine Discharge)
Date of Disposition: 05/25/25
Time of Disposition: 10:53
Patient with high blood pressure during this ER visit?: No
Condition: Good
Covid-19: Not Applicable
Discharge Problem:
Fecal impaction
Instructions: Fecal Impaction (DC)
Prescriptions:
No Action
omeprazole 40 mg Capsule,Delayed Release(Dr/Ec)
40 mg PO BID
cyanocobalamin (vitamin B-12) 1,000 mcg Tablet
1,000 mcg PO DAILY
Theragen Tablet
1 tab PO DAILY
cholecalciferol (vitamin D3) [Vitamin D3] 25 mcg (1,000 unit) Tablet
25 mcg PO DAILY
biotin 5 mg Tablet
5 mg PO DAILY
magnesium glycinate 100 mg Tablet
400 mg PO HS PRN (Reason: sleep)
magnesium citrate 100 mg Capsule
100 mg PO DAILYPRN PRN (Reason: constiaption)
cetirizine [Zyrtec] 10 mg Tablet
10 mg PO DAILYPRN PRN (Reason: allergies)
albuterol sulfate 90 mcg/actuation HFA aerosol inhaler
2 puff inhalation Q6H PRN (Reason: shortness of breath or wheezing) Qty: 8.5 0RF
methylprednisolone [Medrol (Dima)] 4 mg tablets,dose pack
See Rx Instructions .ROUTE .COMPLEX Qty: 21 0RF
Rx Instructions:
for 6 days
famotidine [Pepcid] 40 mg tablet
20 mg PO DAILY
clotrimazole 10 mg Leah
10 mg MUCOUS MEMBRANE TID
Mylanta
10 ml PO TID
valsartan 40 mg tablet
40 mg PO DAILY Qty: 30 0RF
Referrals:
Jamaica Jones CRNP [Family Provider, Internal Medicine]
Activity Restrictions/Additional Instructions:
You came to the emergency department today with concerns of a fecal impaction. Please drink plenty of fluids and increase fiber in your diet in the future. Return for any worsening, new or concerning symptoms.
Interventions
Interventions:
*Risk Screen - Suicide Last Done: 05/25/25 08:23
*General Assessment Last Done: 05/25/25 08:23
Discharge Date and Time
Print Language: ARABIC
[2025-05-25 11:00] VITALS: BP 140/87
== END 2025-05-25 11:04 | disposition home or self-care (01) ==
LOC: EMR 08:21
PROVIDERS: EMERGENCY PHYSICIAN Student in an Organized Health Care Education/Training Program; FAMILY PHYSICIAN Nurse Practitioner Adult Health
DX: K56.41 Fecal impaction (principal); J45.909 Unspecified asthma, uncomplicated; K21.9 Gastro-esophageal reflux disease without esophagitis; Z85.3 Personal history of malignant neoplasm of breast
CPT/HCPCS: 99284; 96372

== ENCOUNTER → 2025-06-29 12:58 | Outpatient (REF) | payer OTHER, SELFPAY | LOC: HWRAD 12:58 | PROVIDERS: ATTENDING PHYSICIAN Nurse Practitioner Adult Health; REFERRING PHYSICIAN Student in an Organized Health Care Education/Training Program | DX: K76.9 Liver disease, unspecified (principal); K83.8 Other specified diseases of biliary tract | CPT/HCPCS: 76700 ==

== ENCOUNTER → 2025-08-06 09:07 | Outpatient (REF) | payer OTHER, SELFPAY | LOC: RAD 09:07 | PROVIDERS: ATTENDING PHYSICIAN Internal Medicine; FAMILY PHYSICIAN Nurse Practitioner Adult Health | DX: R07.89 Other chest pain (principal) | CPT/HCPCS: 74246 ==